=== PATIENT | male | born 1960 | race Caucasian/White ===

== ENCOUNTER → 2024-07-09 | Outpatient (CLI) | payer MEDICARE, SELFPAY ==
--- NOTE | 2024-07-09 13:15 | EKG_ITS ---
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
[2024-07-09 13:24] LABS: Basophils % (Auto) 1 % (0-2.5); Eosinophils # (Auto) 0.3 Thou/mm3 (0.0-0.5); Eosinophils % (Auto) 6 % (0-10); Hemoglobin 15.5 g/dL (13.5-16.0); Immature Granulocytes % (Auto) 0 % (0-0); Immature Granulocytes Auto 0.01 Thou/mm3 (0.00-0.00); Lymphocytes # (Auto) 1.6 Thou/mm3 (1.0-4.8); Lymphocytes % (Auto) 30 % (10-50); Mean Corpuscular HGB Conc 34.4 g/dl (31.0-37.0); Mean Corpuscular Hemoglobin 30.5 pg (25.0-35.0); Mean Corpuscular Volume 89 fL (80-100); Monocytes # (Auto) 0.4 Thou/mm3 (0.0-0.8); Monocytes % (Auto) 6 % (0-12); Neutrophils # (Auto) 3.1 Thou/mm3 (1.8-7.7); Neutrophils % (Auto) 57 % (37-80); Nucleated Red Blood Cell % 0 /100 WBC (0); Platelet Count 237 Thou/mm3 (140-440); RDW Standard Deviation 39.7 fL (35.1-43.9); Red Blood Count 5.08 Miln/mm3 (4.50-5.90); White Blood Count 5.4 Thou/mm3 (3.8-10.6)
[2024-07-09 13:46] LABS: Alanine Aminotransferase 22 U/L (10-49); Albumin, Serum 4.3 gm/dL (3.4-4.8); Albumin/Globulin Ratio 1.8 (1.2-2.2); Alkaline Phosphatase 87 U/L (46-116); Anion Gap 7 (7-16); Aspartate Amino Transferase 14 U/L (0-34); BUN/Creatinine Ratio 14 Ratio (12-20); Bilirubin,Total 0.6 mg/dL (0.3-1.2); Blood Urea Nitrogen 14 mg/dL (9-23); Calcium 9.1 mg/dL (8.3-10.6); Calcium (Corrected) 9.1 mg/dL (8.5-10.1); Chloride 105 mMol/L (98-107); Globulin 2.4 gm/dL (2.3-3.5); Glucose 169 mg/dL (74-106); Osmolality,Calculated 280 (275-295); Potassium 4.5 mMol/L (3.4-5.1); Sodium 138 mMol/L (136-145); Total Protein 6.7 gm/dL (5.7-8.2); eGFR > 60 See Note
== END | disposition home or self-care (01) ==
PROVIDERS: PCP Family Medicine; Referring Provider Family Medicine; Visit Provider Family Medicine
DX: Z01.818 Encounter for other preprocedural examination (principal); M25.512 Pain in left shoulder
CPT/HCPCS: 36415; 80053; 85025; 93005

== ENCOUNTER 2024-08-05 20:11 | Emergency (ER) | payer MEDICARE, SELFPAY ==
[2024-08-05 20:12] VITALS: BMI 28.7
[2024-08-05 20:18] VITALS: BP 162/85; PULSE 90; RESP 18; TEMP 37.4; O2SAT 94
--- NOTE | 2024-08-05 21:14 | PD.EDHA ---
ED Headache RME/HPI General Chief Complaint: Headache Stated Complaint: HEADACHE Arrival date/time: 08/05/24 20:11 RME / HPI RME / HPI Narrative: This section includes all my notes and documentations, including HPI, PE, and ED course. Jeet Boyd MD HPI: 64-year-old male here with about 2-week history of sinus pressure and congestion and cough and fever on and off. In the past few days, he reports worst facial headache of his life. With nausea. No speech or visual impairment. No loss of power in arms or legs. No other complaints. ROS: All negative except as documented in HPI. Physical Exam: General: Alert and oriented. Appears uncomfortable. Eyes: Conjunctivae and lids clear. EOMI. PERRL. ENT: Severe sinus congestion noted. Pharynx normal. TM normal bilaterally. Maxillary sinus tenderness on palpation. Neck: Supple. No carotid bruit. No JVD. Heart: RRR. Lungs: No respiratory distress. Good air movement. No rhonchi, wheezing, rales. Abdomen: Soft and nontender. Skin: Warm and dry. Neuro: Alert and oriented X 3. Cranial nerves II to XII grossly normal. No peripheral motor deficits. I reviewed all diagnostic test results. My interpretation of the chest x-ray is no acute findings. My review of the head CT report is no acute findings. COVID/influenza negative. At this point, diagnoses include sinusitis. Treatment here included Tylenol with Codeine, Ibuprofen, Augmentin, and Zofran. Prescribed ABX and recommended outpatient treatment. Based on my best medical judgment, made decision no further evaluation or treatment indicated at this time. Patient understands and agrees to the discharge instructions customized and printed, see below. Discharge Instructions from Dr. Boyd printed for you: 1. Augmentin for sinus infection. 2. Prednisone will help decrease inflammation in the sinuses. 3. Zofran for nausea/vomiting. Tylenol with codeine for severe pain. 4. See a private doctor next week if not completely better. 5. Seek immediate medical care with worsening or with any concerns. eJet Boyd MD Related Data Previous Rx's ?Medication ?Instructions ?Recorded ibuprofen 800 mg tablet 800 mg PO PRN PRN Pain 10/02/21 acetaminophen 300 mg-codeine 30 mg 2 tab PO Q8H PRN pain #20 tabs 08/05/24 tablet amoxicillin 875 mg-potassium 1 tab PO BID #20 tabs 08/05/24 clavulanate 125 mg tablet ondansetron 4 mg disintegrating 4 mg PO TID PRN nausea and 08/05/24 tablet vomiting 30 days #10 tabs prednisone 50 mg tablet 50 mg PO QDAY #3 tabs 08/05/24 Allergies Allergy/AdvReac Type Severity Reaction Status Date / Time No Known Allergies Allergy Verified 10/03/21 13:09 Review of Systems Review of Systems Systems Reviewed: All systems reviewed, normal except as documented Past Medical History Past Medical History NEUROLOGIC: Negative Seizures CARDIAC: Negative Cardiac Disorders or Congestive Heart Failure RESPIRATORY: Negative Chronic Obstructive Pulmonary Disease (COPD) or Asthma GENITOURINARY: Negative Renal Disease ENDOCRINE: Negative Diabetes Mellitus Type 1 or Diabetes Mellitus Type 2 HEMATOLOGIC: Negative Sickle Cell Disease OTHER HISTORY: Negative Blood Transfusions, Blood Transfusion Reaction or Anesthesia Reactions Family History FAMILY HISTORY: Positive Family Neurologic Problems (Strokes: brother at 50years old, mother ) Social History SMOKING STATUS: Never smoker SUBSTANCE USE: does not use ED Exam Narrative Physical exam: As noted in HPI. Course Course Course Narrative: CXR is ordered for determining the etiology of cough. Quality Measures none Orders Category Date Time Status Bedside COVID-19 Antigen Test NOW Care 08/05/24 21:15 Active Bedside Influenza A&B Antigen Test NOW Care 08/05/24 21:[address] head/brain wo con Stat Exams 08/05/24 22:15 Completed XR chest 1V portable Stat Exams 08/05/24 21:15 Completed ACETAMINOPHEN w/COD 300-30 [Tylenol w/Cod #3] Med 08/05/24 21:14 Discontinued 2 tab PO X1 ONE Amoxicillin/Pot Clav 875 [Augmentin 875] Med 08/05/24 22:18 Discontinued 1 tab PO X1 ONE Ibuprofen Tab [Motrin Tab] Med 08/05/24 21:14 Discontinued 800 mg PO X1 ONE Ondansetron Odt [Zofran Odt] Med 08/05/24 21:14 Discontinued 4 mg PO X1 ONE Vital Signs Vital signs: Vital Signs Temperature 99.4 F 08/05/24 20:18 Pulse Rate 90 08/05/24 20:18 Respiratory Rate 18 08/05/24 20:18 Blood Pressure 162/85 H 08/05/24 20:18 Pulse Oximetry (%) 94 L 08/05/24 20:18 Oxygen Delivery Method Room Air 08/05/24 20:18 Headache Patient data External records reviewed:: [facility] previous records (Per chart review, patient has no relevant previous ED visits.) Clinical information provided by:: patient Social determinants that could affect healthcare access:: none Patient has the following chronic illnesses:: none How is presenting disease/condition affected by chronic disease/condition?: no chronic disease Evaluation data The following diagnostics were reviewed and interpreted by me:: lab results and radiology exam(s) Lab and/or radiology exams considered but not ordered:: none Interpretation Summary: Sinusitis Medications / Prescriptions Medications or Prescriptions considered but not ordered:: none Medication administrations:: Medication Administration History Discontinued Medications Acetaminophen/Codeine Phosphate (Acetaminophen W/Cod 300-30 Tablet) 2 tab PO X1 ONE Stop: 08/05/24 21:15 Last Admin: 08/05/24 21:28 Dose: 2 tab Documented By: Amoxicillin/Clavulanate Potassium (Amoxicillin/Pot Clav 875 Tablet) 1 tab PO X1 ONE Stop: 08/05/24 22:19 Ibuprofen (Ibuprofen Tab 400 Mg Tablet) 800 mg PO X1 ONE Stop: 08/05/24 21:15 Last Admin: 08/05/24 21:28 Dose: 800 mg Documented By: Ondansetron HCl (Ondansetron Odt 4 Mg Tabrap) 4 mg PO X1 ONE; Protocol Stop: 08/05/24 21:15 Last Admin: 08/05/24 21:28 Dose: 4 mg Documented By: Tylenol with Codeine, Ibuprofen, Zofran, Augmentin Consultations Consultation(s) initiated? (list below): No Diagnosis Differential diagnosis headache: migraine, tension headache, subarachnoid hemorrhage and sinusitis Most likely diagnosis given after review of the tests above:: Sinusitis Admission Indicated Admission indicated?: not indicated Explain why admission is indicated or not indicated:: No criteria for admission. Admission Request Was there a request for admission?: No Disposition Plan Disposition Plan: Discharge Discharge Attestation Discharge Attestation: The patient and all family members were given an opportunity to ask questions and understood the discharge instructions. Discharge instructions specifically effects, indications for sooner follow up or return to the emergency department, and the expected course of current diagnosis. Patient condition: Stable Discharge Plan Plan Patient Disposition: HOME (Self Care) Prescriptions/Referrals Prescriptions/Med Rec: New acetaminophen-codeine 300-30 mg tablet 2 tab PO Q8H MDD 6 PRN (Reason: pain) Qty: 20 0RF amoxicillin-pot clavulanate 875-125 mg tablet 1 tab PO BID Qty: 20 0RF ondansetron 4 mg tablet,disintegrating 4 mg PO TID PRN (Reason: nausea and vomiting) 30 Days Qty: 10 0RF prednisone 50 mg tablet 50 mg PO QDAY Qty: 3 0RF Referrals: No Primary/Family,Physician [Primary Care Provider] - In 1 week Problem List Clinical Impression: Sinusitis Patient/Caregiver Discharge Instructions Discharge Activity: activity as tolerated Education Materials: ED Sinusitis (Antibiotic Treatment) Additional Instructions: Discharge Instructions from Dr. Boyd printed for you: 1. Augmentin for sinus infection. 2. Prednisone will help decrease inflammation in the sinuses. 3. Zofran for nausea/vomiting. Tylenol with codeine for severe pain. 4. See a private doctor next week if not completely better. 5. Seek immediate medical care with worsening or with any concerns. Print Language: Monegasque Stand Alone Forms: Jahaira Award Info., Patient Portal Info Letter
--- NOTE | 2024-08-05 21:15 | XR_ITS ---
Examination: CT brain head without contrast. 2-D sagittal coronal reconstructions Date and time of exam:August 05, 2024 2140 hrs. Indications: Headaches beginning 10 minutes ago CTDI: vol (mGy):49.5 DLP: (mGycm):911 69 Technique: Multiple CT axial sections of the brain have been obtained, 5 mm slice thickness. Contrast has not been administered. 2-D sagittal, coronal reconstructions have been obtained Low dose protocols were performed. One or more of the following dose reduction techniques were used; automated exposure control, adjustment of the mA and/or KV according to patient size, use of iterative reconstruction technique. Findings: No significant ventricular enlargement. Intra-axial or extra-axial hemorrhage density is not seen. No mass effect or midline shift Basal cisterns are not remarkable. Fourth ventricle is midline. Cranial vault intact. Impression: Negative for acute hemorrhage, mass effect or midline shift Chronic pansinusitis, severe in the left sphenoid air cells
--- NOTE | 2024-08-05 21:15 | XR_ITS ---
Examination: PA chest single view Technique: Upright PA chest single view Exam date and time: August 05, 2024 1919 p.m. Indications: Onset chest pain today. Findings: Normal heart size No pulmonary edema No lobar pneumonia The osseous structures are intact Impression: No pneumonia or pulmonary edema
[2024-08-05] MEDS: IBUPROFEN TAB 400 MG TABLET 800 MG PO (21:28)
[2024-08-05] MEDS: ACETAMINOPHEN w/COD 300-30 TABLET 2 TAB PO (21:28)
[2024-08-05] MEDS: ONDANSETRON ODT 4 MG TABRAP PO (21:28)
[2024-08-05] MEDS: AMOXICILLIN/POT CLAV 875 TABLET 1 TAB PO (22:30)
[2024-08-05 22:37] VITALS: RESP 18
== END 2024-08-05 22:38 | disposition home or self-care (01) ==
PROVIDERS: Emergency Provider Emergency Medicine
DX: J32.4 Chronic pansinusitis (principal); R05.9 Cough, unspecified; R07.9 Chest pain, unspecified
CPT/HCPCS: 70450; 71045; 87400; 87811; 99284; Q0162; A9270

== ENCOUNTER 2024-10-27 11:51 | Emergency (ER) | payer MEDICARE, SELFPAY ==
[2024-10-27 12:04] VITALS: BP 188/107; PULSE 83; RESP 16; TEMP 36.7; O2SAT 95; BMI 28.3
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
[2024-10-27 14:13] VITALS: BP 179/113
[2024-10-27 14:16] VITALS: BP 179/113; PULSE 83
[2024-10-27] MEDS: cloNIDine HCL 0.1 MG TABLET PO (14:16)
[2024-10-27] MEDS: SUMAtriptan INJ 6 MG/0.5 ML VIAL SC (15:11)
[2024-10-27] MEDS: KETOROLAC INJ 60 MG/2 ML VIAL 30 MG IM (15:12)
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
[2024-10-27 15:54] VITALS: BP 142/88
== END 2024-10-27 16:07 | disposition home or self-care (01) ==
PROVIDERS: Emergency Provider Emergency Medicine; PCP Family Medicine
DX: S19.9XXA Unspecified injury of neck, initial encounter (principal); S09.90XA Unspecified injury of head, initial encounter; V89.9XXA Person injured in unspecified vehicle accident, initial encounter
CPT/HCPCS: 70450; 72125; 96372; 99284; J1885; J3030; A9270

== ENCOUNTER → 2025-01-03 | Outpatient (CLI) | payer MEDICARE, SELFPAY ==
[2025-01-03 17:42] LABS: Anion Gap 10 (7-16); BUN/Creatinine Ratio 16 Ratio (12-20); Blood Urea Nitrogen 14 mg/dL (9-23); Calcium 9.2 mg/dL (8.3-10.6); Carbon Dioxide 24.5 mMol/L (20.0-31.0); Chloride 108 mMol/L (98-107); Creatinine (Component) 0.9 mg/dL (0.6-1.3); Glucose 92 mg/dL (74-106); Osmolality,Calculated 283 (275-295); Potassium 4.2 mMol/L (3.4-5.1); Sodium 142 mMol/L (136-145); eGFR > 60 See Note
[2025-01-03 17:44] LABS: Glucose Estimated Average 128 mg/dL (80-131); Hemoglobin A1C 6.1 % Hgb (4.8-6.0)
== END | disposition home or self-care (01) ==
LOC: COPL 16:34
PROVIDERS: PCP Family Medicine; Referring Provider Student in an Organized Health Care Education/Training Program; Visit Provider Student in an Organized Health Care Education/Training Program
DX: H34.8110 Central retinal vein occlusion, right eye, with macular edema (principal)
CPT/HCPCS: 36415; 80048; 83036